=== PATIENT | male | born 1940 ===

== ENCOUNTER → 2017-04-16 08:24 | Outpatient (CLI) | payer OTHER | END | disposition home or self-care (01) | LOC: LAB 08:24 | DX: D51.1 Vitamin B12 deficiency anemia due to selective vitamin B12 malabsorption with proteinuria (principal); D51.0 Vitamin B12 deficiency anemia due to intrinsic factor deficiency; D68.61 Antiphospholipid syndrome; E72.11 Homocystinuria; E72.12 Methylenetetrahydrofolate reductase deficiency; I10 Essential (primary) hypertension; I80.221 Phlebitis and thrombophlebitis of right popliteal vein; I82.531 Chronic embolism and thrombosis of right popliteal vein; E06.3 Autoimmune thyroiditis; E08.65 Diabetes mellitus due to underlying condition with hyperglycemia; E08.21 Diabetes mellitus due to underlying condition with diabetic nephropathy; E08.42 Diabetes mellitus due to underlying condition with diabetic polyneuropathy; N41.9 Inflammatory disease of prostate, unspecified; K29.70 Gastritis, unspecified, without bleeding; D68.62 Lupus anticoagulant syndrome; D68.8 Other specified coagulation defects; D68.51 Activated protein C resistance; D68.52 Prothrombin gene mutation; D68.59 Other primary thrombophilia ==

== ENCOUNTER 2017-09-05 09:26 | Emergency (ER) | payer OTHER ==
[~2017-09-05] VITALS: Ht 182.9 cm; Wt 117.9 kg
[2017-09-05] MEDS ORDERED: ZESTRIL40 M1 (10:03)
[2017-09-05] MEDS ORDERED: METFORMIN HCL850 MG (10:03)
[2017-09-05] MEDS ORDERED: HYDROCHLOROTHIA25 MG (10:03)
[2017-09-05] MEDS ORDERED: ZYLOPRIM100 M1 (10:04)
[2017-09-05] MEDS ORDERED: XARELTO20 MG (10:04)
[2017-09-05] MEDS ORDERED: OMEPRAZOLE20 MG (10:05)
[2017-09-05] MEDS ORDERED: VYTORIN 10-201 EACH (10:05)
[2017-09-05] MEDS ORDERED: PAROXETINE HCL30 MG (10:05)
[2017-09-05] MEDS ORDERED: NORVASC10 MG (10:05)
[2017-09-05] MEDS ORDERED: PROSCAR5 MG (10:05)
[2017-09-05] MEDS ORDERED: TERAZOSIN HCL5 MG (10:06)
[2017-09-05] MEDS ORDERED: ASA81 MG (10:06)
[2017-09-05] MEDS ORDERED: NEURONTIN300 MG (10:06)
[2017-09-05] MEDS ORDERED: CIPRO500 MG PO (17:51)
[2017-09-05] MEDS ORDERED: FLAGYL500MG PO (17:51)
[2017-09-05] MEDS ORDERED: INTESTINEX680 M1 PO (17:51)
== END 2017-09-05 19:00 | disposition home or self-care (01) ==
LOC: ER 09:26
DX: K52.89 Other specified noninfective gastroenteritis and colitis (principal); J11.1 Influenza due to unidentified influenza virus with other respiratory manifestations

== ENCOUNTER 2017-11-23 09:53 | Emergency (ER) | payer OTHER ==
[~2017-11-23] VITALS: Ht 182.9 cm; Wt 124.7 kg
[~2017-11-23 09:53] MED LIST: ASA81 MG; CIPRO500 MG PO; FLAGYL500MG PO; HYDROCHLOROTHIA25 MG; INTESTINEX680 M1 PO; METFORMIN HCL850 MG; NEURONTIN300 MG; NORVASC10 MG; OMEPRAZOLE20 MG; PAROXETINE HCL30 MG; PROSCAR5 MG; TERAZOSIN HCL5 MG; VYTORIN 10-201 EACH; XARELTO20 MG; ZESTRIL40 M1; ZYLOPRIM100 M1
== END 2017-11-23 12:06 | disposition home or self-care (01) ==
LOC: ER 09:53
DX: J40 Bronchitis, not specified as acute or chronic (principal)